=== PATIENT | female | born 1995 | race Caucasian/White ===

== ENCOUNTER 2022-07-21 09:22 | Outpatient (CLI) | payer BC, MEDICAID, SELFPAY ==
--- NOTE | ~2022-07-21 | XR_ITS ---
Right Knee Technique: AP and lateral views were obtained. Clinical History: Pain Findings: No fracture or dislocation is seen. Osseous alignment is anatomic. Joint spaces are preserv ed without degenerative or erosive change. Soft tissues are unremarkable. No joint effusion is seen. Impression: Unremarkable right knee radiographs. Reviewed, dictated and finalized at [facility]. RY MACHINE OPERATOR Impression: Unremarkable right knee radiographs.
--- NOTE | ~2022-07-21 | XR_ITS ---
XR finger 3rd LT min 2V DATE: 07/21/2022 09:57 INDICATION: Third finger proximal interphalangeal area pain after shutting finger in door TECHNIQUE: 4 views COMPARISON: None FINDINGS: No fracture, dislocation, periosteal reaction or bone destruction of the third digit. Metac arpophalangeal and interphalangeal joints are intact. IMPRESSION: Negative Reviewed, dictated and finalized at location B. ISTRY SPECIALIST IMPRESSION: Negative
[2022-07-21 10:31] LABS: Basophils Percent Auto 0.5 % (0.2-1.2); Eosinophils Absolute Auto 0.1 K/mm3 (0-0.3); Eosinophils Percent Auto 1.1 % (0-4.4); Hematocrit 40.2 % (37.0-47.0); Immature Granulocyte Absolute 0.01 K/mm3 (0.00-0.031); Immature Granulocyte Percent A 0.1 % (0-0.5); Lymphocytes Absolute Auto 2.43 K/mm3 (0.9-3.2); Lymphocytes Percent Auto 29.5 % (18.3-44.2); Mean Corpuscular HGB Conc 34.8 g/dl (32-36); Mean Corpuscular Hemoglobin 31.8 pg (26-34); Mean Corpuscular Volume 91.4 fl (80-100); Mean Platelet Volume 9.2 fl (7.4-10.4); Monocytes Absolute Auto 0.6 K/mm3 (0.1-0.6); Monocytes Percent Auto 7.4 % (2.6-8.5); Neutrophils Absolute Auto 5.1 K/mm3 (1.3-6.7); Neutrophils Percent Auto 61.4 % (45.5-73.1); Platelet Count Result 235 k/mm3 (150-375); Red Cell Distribution Width 12.1 % (11.5-14.5); White Blood Count 8.3 K/mm3 (4.5-10.0)
[2022-07-21 10:34] LABS: Appearance Urine Clear (Clear); Bacteria Urine None Seen /hpf; Bilirubin Urine Negative (Negative); Blood Urine 3+ (Negative); Color Urine Yellow (Yellow); Glucose Urine UA Negative (Negative); Ketones Urine 1+ mg/dL (Negative); Leukocyte Esterase Ur Negative LEU/UL (NEGATIVE); Nitrate Urine Negative (Negative); Non Pathogenic Casts 0-2; Protein Urine Negative (Negative); RBC Urine 51-100 /hpf (0-2); Specific Grav Ur 1.023 (1.001-1.035); Squamous Epithelial Cell Urine Few /hpf (Few); WBC Urine 0-5 /hpf (0-3); pH Urine 6.5 (5.0-9.0)
[2022-07-21 10:42] LABS: Add Urine Microscopic? YES
[2022-07-21 10:43] LABS: Alanine Aminotransferase 28 U/L (6-35); Albumin Level 4.3 g/dL (3.5-5.1); Alkaline Phosphatase 88 U/L (38-126); Anion Gap 7 mmol/L (8-16); Aspartate Amino Transferase 25 U/L (14-36); Bilirubin,Total 0.4 mg/dL (0.2-1.3); Blood Urea Nitrogen 12 mg/dL (7-17); Calcium 9.1 mg/dL (8.4-10.2); Carbon Dioxide 29 mmol/L (22-30); Chloride 100 mmol/L (98-107); Cholesterol 197 mg/dL (0-200); Estimated Glomerular Filt Rate > 60; Glucose 94 mg/dL (65-110); HDL Direct 47 mg/dL; Potassium 3.8 mmol/L (3.4-5.0); Sodium 136 mmol/L (137-145); Triglycerides 195 mg/dL (<150)
[2022-07-21 10:55] LABS: LDL Cholesterol Direct 98 mg/dL
[2022-07-21 11:19] LABS: Valproic Acid 42.8 ug/mL (50-120)
[2022-07-21 11:31] LABS: Vitamin D 25 Hydroxy 49.2 ng/mL
== END 2022-07-21 09:23 | disposition home or self-care (01) ==
PROVIDERS: PCP Nurse Practitioner Family
DX: E66.01 Morbid (severe) obesity due to excess calories (principal); Z13.220 Encounter for screening for lipoid disorders; R10.9 Unspecified abdominal pain
CPT/HCPCS: 36415; 73140; 73560; 80053; 80061; 80164; 81001; 82306; 85025; 87086

== ENCOUNTER 2024-03-29 22:36 | Day surgery (SDC) | payer BC, SELFPAY ==
--- NOTE | ~2024-03-29 | CT_ITS ---
CT of the Abdomen and Pelvis: Indication: Abdominal pain Technique: 2.5 mm axial scans were obtained through the abdomen and pelvis following intravenous adm inistration of 100 cc of Omnipaque 350. Dose reduction technique was used on this scan by utilizing a utomated exposure control and iterative reconstruction technique. The dose-length product (DLP) was 1 804.33 mGy-cm. Findings: Scans through the lung bases are unremarkable. The liver, spleen, pancreas, gallbladder, adrenals and and left kidney are within normal limits. Ther e is a 9 mm stone in the very proximal right ureter with mild right hydronephrosis and mildly delayed right nephrogram. Mild right perinephric fluid present. No evidence of aortic aneurysm. No lymphade nopathy. No bowel obstruction or bowel wall thickening. There is no evidence to suggest acute appendicitis. Images through the pelvis were performed. Urinary bladder unremarkable. No pelvic mass seen. No pelvi c ascites. Impression: 9 mm stone in the very proximal right ureter with mild right hydronephrosis, delayed right nephrogram , and mild right perinephric fluid. Reviewed, dictated and finalized at location . IN ANALYST Impression: 9 mm stone in the very proximal right ureter with mild right hydronephrosis, de layed right nephrogram, and mild right perinephric fluid.
--- NOTE | ~2024-03-29 | XR_ITS ---
EXAMINATION: XR stent kub - surgery DATE: 03/30/2024 8:50 MAIL CLERK INDICATION: RT FLANK PAIN . TECHNIQUE: 3 fluoroscopic images of the right abdomen and pelvis were obtained during right retrograd e pyelography with stent placement, performed by Jin Barth MD. I was not present during the proce dure. Fluoroscopy exposure time was 22 seconds. Air Kerma 18.57 mGy. DAP 0.49969 mGym2. COMPARISON: CT abdomen and pelvis, same date. FINDINGS/IMPRESSION: Fluoroscopic documentation of right retrograde pyelography with stent placement. Please refer to the operative note for complete procedural details . Reviewed, dictated and finalized at location K. CLERK
[2024-03-29 22:40] VITALS: BP 157/102; PULSE 90; RESP 20; TEMP 36.6; O2SAT 97
[2024-03-29 22:52] LABS: Basophils Percent Auto 0.4 % (0.2-1.2); Eosinophils Absolute Auto 0.1 K/mm3 (0-0.3); Eosinophils Percent Auto 1.1 % (0-4.4); Hematocrit 44.2 % (37.0-47.0); Hemoglobin 15.8 g/dL (12.0-15.0); Immature Granulocyte Absolute 0.02 K/mm3 (0.00-0.031); Immature Granulocyte Percent A 0.2 % (0-0.5); Lymphocytes Absolute Auto 1.89 K/mm3 (0.9-3.2); Lymphocytes Percent Auto 21.1 % (18.3-44.2); Mean Corpuscular HGB Conc 35.7 g/dl (32-36); Mean Corpuscular Hemoglobin 30.8 pg (26-34); Mean Corpuscular Volume 86.2 fl (80-100); Mean Platelet Volume 9.4 fl (7.4-10.4); Monocytes Absolute Auto 0.7 K/mm3 (0.1-0.6); Neutrophils Absolute Auto 6.2 K/mm3 (1.3-6.7); Neutrophils Percent Auto 69.2 % (45.5-73.1); Platelet Count Result 216 k/mm3 (150-375); Red Blood Count 5.13 M/mm3 (4.2-5.4); Red Cell Distribution Width 12.4 % (11.5-14.5)
[2024-03-29 23:06] LABS: Alanine Aminotransferase 45 U/L (6-35); Albumin Level 4.7 g/dL (3.5-5.1); Alkaline Phosphatase 102 U/L (38-126); Anion Gap 10 mmol/L (4-12); Aspartate Amino Transferase 29 U/L (14-36); Bilirubin,Total 0.4 mg/dL (0.2-1.3); Blood Urea Nitrogen 15 mg/dL (7-17); Calcium 9.5 mg/dL (8.4-10.2); Carbon Dioxide 27 mmol/L (22-30); Chloride 102 mmol/L (98-107); Estimated CRCL calculation 118 ml/min; Estimated Glomerular Filt Rate > 60; Glucose 121 mg/dL (65-110); Lipase 59 U/L (23-300); Potassium 3.9 mmol/L (3.4-5.0); Sodium 139 mmol/L (137-145)
[2024-03-29 23:38] LABS: Add Urine Microscopic? YES; Appearance Urine Cloudy (Clear); Bacteria Urine None Seen /hpf; Bilirubin Urine Negative (Negative); Blood Urine 3+ (Negative); Color Urine Dark Yellow (Yellow); Glucose Urine UA Negative (Negative); Ketones Urine Negative (Negative); Leukocyte Esterase Ur Negative LEU/UL (Negative); Nitrate Urine Negative (Negative); Non Pathogenic Casts 0-2; Protein Urine 1+ mg/dL (Negative); RBC Urine >100 /hpf (0-2); Specific Grav Ur 1.033 (1.001-1.035); Squamous Epithelial Cell Urine Moderate /hpf (Few); pH Urine 5.5 (5.0-9.0)
[2024-03-30] VITALS (15 sets, daily range): BP systolic 132–162; BP diastolic 73–117; PULSE 79–100; RESP 12–18; TEMP 36.2; O2SAT 95–100
[2024-03-30] MEDS: MORPHINE SULFATE (*CRX) 4 MG/ML INJ IV PUSH (02:56)
[2024-03-30] MEDS: SODIUM CHLORIDE 0.9% IV 1,000 ML 999 ML IV CONT (02:56)
[2024-03-30] MEDS: ONDANSETRON INJ 4 MG/2 ML VIAL IV PUSH (02:56)
--- NOTE | 2024-03-30 04:36 | ED_ITS ---
HPI - General Adult General Chief complaint: Abdominal Pain Stated complaint: right sided abdominal pain Time Seen by Provider: 03/30/24 02:31 History of Present Illness HPI narrative: Patient 28-year-old that presents to the emergency department with chief complaint of abdominal pain. Patient reports that started having pain in lower quadrants the abdomen reports worse in the right side of the abdomen patient states no vomiting denies diarrhea denies bloody urine blood in stool. Related Data Allergies Allergy/AdvReac Type Severity Reaction Status Date / Time No Known Allergies Allergy Unknown Verified 03/29/24 22:36 Review of Systems Review of Systems: A 10 system review of systems was completed on the patient and is negative except for what is stated in the HPI. Nursing and ancillary documentation was reviewed. [facility] Family History Family History Other Family history of thyroid disease Hypertension Social History Social History Smoking status: Never smoker Alcohol intake: never Exam Narrative: GENERAL: Well-appearing, well-nourished, and in no acute distress. HEAD: Normocephalic, atraumatic. EYES: PERRLA and EOMI. ENT: Nares clear, no rhinorrhea or epistaxis. Mucous membranes moist. NECK: Supple. CHEST: Clear to auscultation. No respiratory distress. HEART: Regular rate and rhythm. No murmur heard. Normal peripheral pulses. ABDOMEN: Soft, tender in the right lower quadrant, nondistended, normal active bowel sounds. EXTREMITIES: Normal range of motion. No edema. SKIN: Warm, dry, no rash. NEURO: No focal deficits. Alert and oriented x3. PSYCH: Normal mood and affect. Course Vital Signs Vital signs: Vital Signs Temperature 36.6 C 03/29/24 22:40 Pulse Rate 90 03/29/24 22:40 Respiratory Rate 20 03/29/24 22:40 Blood Pressure 157/102 H 03/29/24 22:40 Pulse Oximetry 97 03/29/24 22:40 Oxygen Delivery Room Air 03/29/24 22:40 Temperature 36.6 C 03/29/24 22:40 Pulse Rate 89 03/30/24 06:28 Respiratory Rate 16 03/30/24 06:28 Blood Pressure 141/99 H 03/30/24 06:28 Pulse Oximetry 100 03/30/24 06:28 Oxygen Delivery Room Air 03/29/24 22:40 Medical Decision Making MDM Narrative Medical decision making narrative: Differential diagnosis includes ureterolithiasis UTI pyelonephritis, intra- abdominal CBC and CMP showed no significant abnormality creatinine was 0.9 CT scan showed a 10 x 6 x 14 mm stone in the right UPJ The case was discussed with Dr. Barth who is coming in for another case and plans on doing a stent for the patient after his 1st case. Vital Signs Vital Signs: Vital Signs Temperature 36.6 C 03/29/24 22:40 Pulse Rate 90 03/29/24 22:40 Respiratory Rate 20 03/29/24 22:40 Blood Pressure 157/102 H 03/29/24 22:40 Pulse Oximetry 97 03/29/24 22:40 Oxygen Delivery Room Air 03/29/24 22:40 Temperature 36.6 C 03/29/24 22:40 Pulse Rate 89 03/30/24 06:28 Respiratory Rate 16 03/30/24 06:28 Blood Pressure 141/99 H 03/30/24 06:28 Pulse Oximetry 100 03/30/24 06:28 Oxygen Delivery Room Air 03/29/24 22:40 Lab Data 03/29/24 22:45 03/29/24 22:45 Labs: Lab Results 03/29/24 03/29/24 Range/Units 22:45 23:19 WBC 9.0 (4.5-10.0) K/mm3 RBC 5.13 (4.2-5.4) M/mm3 Hgb 15.8 H (12.0-15.0) g/dL Hct 44.2 (37.0-47.0) % MCV 86.2 (80-100) fl MCH 30.8 (26-34) pg MCHC 35.7 (32-36) g/dl RDW 12.4 (11.5-14.5) % Plt Count 216 (150-375) k/mm3 MPV 9.4 (7.4-10.4) fl Immature Gran % (Auto) 0.2 (0-0.5) % Neut % (Auto) 69.2 (45.5-73.1) % Lymph % (Auto) 21.1 (18.3-44.2) % [place] % (Auto) 8.0 (2.6-8.5) % Eos % (Auto) 1.1 (0-4.4) % Baso % (Auto) 0.4 (0.2-1.2) % Lymph # (Auto) 1.89 (0.9-3.2) K/mm3 [place] # (Auto) 0.7 H (0.1-0.6) K/mm3 Eos # (Auto) 0.1 (0-0.3) K/mm3 Baso # (Auto) 0.0 (0.0-0.1) K/mm3 Abs Immat Gran (auto) 0.02 (0.00-0.031) K/mm3 Absolute Neuts (auto) 6.2 (1.3-6.7) K/mm3 Absolute Nucleated RBC 0.000 (0.0-0.012) K/mm3 Nucleated RBC % 0.0 (0.0-0.2) % Sodium 139 (137-145) mmol/L Potassium 3.9 (3.4-5.0) mmol/L Chloride 102 (98-107) mmol/L Carbon Dioxide 27 (22-30) mmol/L Anion Gap 10 (4-12) mmol/L BUN 15 (7-17) mg/dL Creatinine 0.90 (0.7-1.0) mg/dL Estim Creat Clear Calc 118 ml/min Estimated GFR > 60 (59 - ) Glucose 121 H (65-110) mg/dL Calcium 9.5 (8.4-10.2) mg/dL Total Bilirubin 0.4 (0.2-1.3) mg/dL AST 29 (14-36) U/L ALT 45 H (6-35) U/L Alkaline Phosphatase 102 (38-126) U/L Total Protein 8.0 (6.3-8.2) g/dL Albumin 4.7 (3.5-5.1) g/dL Lipase 59 (23-300) U/L Urine Color Dark yellow (Yellow) Urine Appearance Cloudy H (Clear) Urine pH 5.5 (5.0-9.0) Ur Specific [place] 1.033 (1.001-1.035) Urine Protein 1+ H (Negative) mg/dL Urine Glucose (UA) Negative (Negative) mg/dL Urine Ketones Negative (Negative) mg/dL Ur Blood (Man) 3+ H (Negative) Urine Nitrate Negative (Negative) Urine Bilirubin Negative (Negative) Urine Urobilinogen 1.0 (<2.0) mg/dL Leukocyte Esterase Rfl Negative (Negative) HAZEL/UL Urine RBC >100 H (0-2) /hpf Urine WBC 6-10 H (0-3) /hpf Ur Squamous Epith Cells Moderate (Few) /hpf Urine Bacteria None seen /hpf Urine Casts 0-2 Discharge Plan Discharge Clinical Impression: Ureterolithiasis Patient Disposition: Still a Patient Condition: Stable Instructions: Antibiotic Form Follow-up/Referrals: UNKNOWN,DOCTOR [Primary Care Provider] - Jin Barth MD [Physician] - Time of Disposition: 06:39
[2024-03-30] MEDS: HYDROmorphone HCL INJ (*CRX) 1 MG/ML SYR IV PUSH (06:41)
--- NOTE | 2024-03-30 07:15 | PC.NURSE ---
report given to waqas sheldon at this time.
--- NOTE | 2024-03-30 07:28 | P.CONUR_ITS ---
Assessment and Plan Assessment and plan (1) Ureterolithiasis: Code(s): N20.1 - Calculus of ureter Status: Acute Assessment and Plan: A: Right ureteral stone, 1 cm, proximal ureter; not infected, but intervention needed for pain control P: - Proceed to OR for cystoscopy, right retrograde pyelogram, right ureteral stent placement - Outpatient follow-up for stone and stent management -- patient aware that the stent will not help the stone pass, and that the stent itself can become a health issue if not dealt with within 3 months Urology Consult Note HPI Date Seen: 03/30/24 Requesting Physician: Jin Barth MD Primary Care Provider: UNKNOWN,DOCTOR Consult Narrative Narrative: Tr Arguelles, (gentype XY, phenotype XY, who identifies as female), presents with right-sided flank pain. CT abdomen and pelvis without contrast reveals a 1 centimeter proximal right ureteral stone -- on my review of the images, there are no other stones in the urinary tract. Urinalysis shows no signs of infection. Serum white blood cell count and creatinine are normal. Has been NPO for 8 hours. Pain control not accomplished with IV pain meds in the ER, so is in need of urologic intervention. No prior stone events, lives in [place], [place], willing to get further care at [facility], best reached at [phone] -PERTINENT LABS: 03/30/2024 - WBC: Normal 03/30/2024 - Creatinine: Normal -PERTINENT IMAGIN03/30/2024 CT Abdomen/Pelvis without contrast ([facility]) - 1 cm proximal right ureteral stone; slightly delayed nephrogram on the right with hydronephrosis; no other stones see in the urinary tract 03/30/2024 UA: No signs of infection Review of Systems Review of Systems: All systems reviewed & are unremarkable except as noted in HPI and below PMFSH Family History Family History Other Family history of thyroid disease Hypertension Social History Social History Smoking status: Never smoker Alcohol intake: never Meds Home Medications and Allergies Allergies Allergy/AdvReac Type Severity Reaction Status Date / Time No Known Allergies Allergy Unknown Verified 03/29/24 22:36 Vital Signs Vital Signs - 24 hr 03/29/24 22:40 03/30/24 04:22 03/30/24 01:30 Temperature 36.6 C Pulse Rate 90 84 82 Respiratory Rate 20 17 17 Blood Pressure 157/102 H 150/87 H 162/97 H Pulse Oximetry 97 97 100 Oxygen Delivery Room Air 03/30/24 06:28 Temperature Pulse Rate 89 Respiratory Rate 16 Blood Pressure 141/99 H Pulse Oximetry 100 Oxygen Delivery Exam Narrative: No acute distress, but does appear in some discomfort Results Labs 03/29/24 22:45 03/29/24 22:45 Labs: Short CBC 03/29/24 Range/Units 22:45 WBC 9.0 (4.5-10.0) K/mm3 Hgb 15.8 H (12.0-15.0) g/dL Hct 44.2 (37.0-47.0) % Plt Count 216 (150-375) k/mm3 BMP 03/29/24 22:45 Sodium 139 Potassium 3.9 Chloride 102 Carbon Dioxide 27 BUN 15 Creatinine 0.90 Glucose 121 H Calcium 9.5 Liver Function 03/29/24 Range/Units 22:45 Total Bilirubin 0.4 (0.2-1.3) mg/dL AST 29 (14-36) U/L ALT 45 H (6-35) U/L Alkaline Phosphatase 102 (38-126) U/L Albumin 4.7 (3.5-5.1) g/dL Urine 03/29/24 Range/Units 23:19 Urine Color Dark yellow (Yellow) Urine Appearance Cloudy H (Clear) Urine pH 5.5 (5.0-9.0) Ur Specific [place] 1.033 (1.001-1.035) Urine Protein 1+ H (Negative) mg/dL Urine Glucose (UA) Negative (Negative) mg/dL
--- NOTE | 2024-03-30 08:34 | WPDHPUPDATE1 ---
History and Physical Update Update Date/Time: 03/30/24 08:34 History and Physical has been reviewed, including an updated exam of the patient. There are NO changes in the patient's condition. Risks, benefits, and alternatives have been discussed and questions answered. Patient agrees to proceed with procedure.
--- NOTE | 2024-03-30 08:35 | P.OP_ITS ---
Procedure Note - Detailed Date of Procedure 03/30/24 Pre-op Diagnosis right sided abdominal pain Post-op Diagnosis Other (Right Ureteral Stone) Procedure Performed Cystoscopy, right ureteral stent Surgeon Jin Barth MD Anesthesia General Indications Pain control issues for right ureteral stone Description of Procedure Prior to the operation an informed consent was obtained.? The patient was brought back to the operative suite and a detailed timeout was performed.? Anesthesia was induced without complication.? The patient was administered IV antibiotics in the prophylactic form.? The patient was positioned in the dorsal lithotomy position with close attention to all pressure points and was prepped and draped in sterile fashion. We began the case using a rigid cystoscope to gain access into the bladder under direct visualization per urethra. Cystoscopy was unremarkable -- no urethral strictures, age-appropriate small prostate. We turned our attention to the right ureteral orifice and cannulated it using a 5 [place] open-ended ureteral catheter and sensor wire.? We radiologically confirmed the wire to pass up into the renal pelvis -- because there was retained contrast from the CT scan, I did not need a retrograde pyelogram. With our wire in place, we placed a 4.8Fr variable length double-J ureteral stent with no string. We confirmed excellent position fluoroscopically.? The patient's bladder was emptied at the conclusion of the case and they tolerated the procedure well. PLAN: -PACU, home -Patient to call our office for treatment planning This note was created with the assistance of voice-recognition software and may contain phonetic errors.
--- NOTE | 2024-03-30 08:37 | WPDANESEPPF ---
Anes - Initial Pre Proc Eval Procedure: Operation Date: 03/30/24 08:30 Proposed Procedures p Cysto, RPG, Stone Ext, Stent Placement(Right) - Jin Barth MD Date/Time: 03/30/24 08:37 Surgeon: Jin Barth MD Pre Op Diagnosis: right sided abdominal pain Patient Data Age: 28 Gender: F Height: 1.7 m Weight: 140.9 kg Last Vital Signs Temp 36.6 C 03/29/24 22:40 Pulse 93 03/30/24 07:47 Resp 16 03/30/24 07:47 BP 132/88 03/30/24 07:47 Pulse Ox 100 03/30/24 07:47 O2 Del Method Room Air 03/29/24 22:40 Allergies Allergy/AdvReac Type Severity Reaction Status Date / Time No Known Allergies Allergy Unknown Verified 03/29/24 22:36 Laboratory Tests 03/29/24 03/29/24 22:45 23:19 WBC 9.0 K/mm3 (4.5-10.0) RBC 5.13 M/mm3 (4.2-5.4) Hgb 15.8 H g/dL (12.0-15.0) Hct 44.2 % (37.0-47.0) MCV 86.2 fl (80-100) MCH 30.8 pg (26-34) MCHC 35.7 g/dl (32-36) RDW 12.4 % (11.5-14.5) Plt Count 216 k/mm3 (150-375) MPV 9.4 fl (7.4-10.4) Immature Gran % (Auto) 0.2 % (0-0.5) Neut % (Auto) 69.2 % (45.5-73.1) Lymph % (Auto) 21.1 % (18.3-44.2) [place] % (Auto) 8.0 % (2.6-8.5) Eos % (Auto) 1.1 % (0-4.4) Baso % (Auto) 0.4 % (0.2-1.2) Lymph # (Auto) 1.89 K/mm3 (0.9-3.2) [place] # (Auto) 0.7 H K/mm3 (0.1-0.6) Eos # (Auto) 0.1 K/mm3 (0-0.3) Baso # (Auto) 0.0 K/mm3 (0.0-0.1) Abs Immat Gran (auto) 0.02 K/mm3 (0.00-0.031) Absolute Neuts (auto) 6.2 K/mm3 (1.3-6.7) Absolute Nucleated RBC 0.000 K/mm3 (0.0-0.012) Nucleated RBC % 0.0 % (0.0-0.2) Sodium 139 mmol/L (137-145) Potassium 3.9 mmol/L (3.4-5.0) Chloride 102 mmol/L (98-107) Carbon Dioxide 27 mmol/L (22-30) Anion Gap 10 mmol/L (4-12) BUN 15 mg/dL (7-17) Creatinine 0.90 mg/dL (0.7-1.0) Estim Creat Clear Calc 118 ml/min Estimated GFR > 60 (59 - ) Glucose 121 H mg/dL (65-110) Calcium 9.5 mg/dL (8.4-10.2) Total Bilirubin 0.4 mg/dL (0.2-1.3) AST 29 U/L (14-36) ALT 45 H U/L (6-35) Alkaline Phosphatase 102 U/L (38-126) Total Protein 8.0 g/dL (6.3-8.2) Albumin 4.7 g/dL (3.5-5.1) Lipase 59 U/L (23-300) Urine Color Dark yellow (Yellow) Urine Appearance Cloudy H (Clear) Urine pH 5.5 (5.0-9.0) Ur Specific [place] 1.033 (1.001-1.035) Urine Protein 1+ H mg/dL (Negative) Urine Glucose (UA) Negative mg/dL (Negative) Urine Ketones Negative mg/dL (Negative) Ur Blood (Man) 3+ H (Negative) Urine Nitrate Negative (Negative) Urine Bilirubin Negative (Negative) Urine Urobilinogen 1.0 mg/dL (<2.0) Leukocyte Esterase Rfl Negative HAZEL/UL (Negative) Urine RBC >100 H /hpf (0-2) Urine WBC 6-10 H /hpf (0-3) Ur Squamous Epith Cells Moderate /hpf (Few) Urine Bacteria None seen /hpf Urine Casts 0-2 Patient hx anesthesia problems: none Family hx anesthesia problems: none Results Review: All pre-operative results and documents have been reviewed as part of the pre-operative evaluation. [facility] Family History Family History Other Family history of thyroid disease Hypertension Social History Social History Smoking status: Never smoker Alcohol intake: never Anes - Eval Final PreProcedure Day of Procedure 03/30/24 08:37 Patient weight: morbidly obese Heart: regular rate and rhythm Lungs: clear to auscultation Airway: Mallampati scale class III Neurological: alert and oriented Last oral intake: >/= 8 hours ASA classification: III Emergent: no Anesthetic plan: proceed Anesthesia type and monitoring: general LMA and standard monitoring Results Review: All pre-operative results and documents have been reviewed as part of the pre-operative evaluation. Informed Consent: The patient's anesthetic plan and its attendant risks and benefits were discussed with the patient/family/POA. Questions were solicited and answers provided to the satisfaction of the patient/family/POA.
[2024-03-30] MEDS: ceFAZolin 2 GM/D5W 50 ML 2 GM/50 ML BAG IVPB (08:43)
[2024-03-30] MEDS: ceFAZolin SODIUM 1 GM VIAL IV PUSH (08:44)
[2024-03-30] MEDS: LIDOCAINE HCL 2% GEL UROJET 10 ML PKG MUCOUS MEM (08:56)
[2024-03-30] MEDS: KETOROLAC 15 MG/ML VIAL (*BKC) IV PUSH (09:03)
[2024-03-30] MEDS: LACTATED RINGERS 1,000 ML 30 ML IV CONT (09:07)
--- NOTE | 2024-03-30 09:58 | SUR.PHASEI ---
0956: Simple mask removed.
[2024-03-30] MEDS: hydrALAZINE HCL 20 MG/ML VIAL 5 MG IV PUSH ×2 (11:02→11:28)
--- NOTE | 2024-03-30 11:07 | SUR.PHASEII ---
Called Dr. Barth and left a message in regards to HTN. Waiting to hear back from Dr. Barth whether or not it's okay still to discharge home.
--- NOTE | 2024-03-30 11:44 | SUR.PHASEII ---
Spoke w/ Dr. Barth and he said it was fine to discharge patient home and that patient should check BP and follow-up with primary.
== END 2024-03-30 12:00 | disposition home or self-care (01) ==
LOC: ANHED 03-30 06:39 → ANHSURGERY 03-30 06:59
PROVIDERS: Emergency Provider Emergency Medicine; Visit Provider Urology
PROC: (CPT 52352; principal; 2024-03-30 08:30)
DX: N20.1 Calculus of ureter (principal); E66.01 Morbid (severe) obesity due to excess calories; Z68.42 Body mass index [BMI] 45.0-49.9, adult
CPT/HCPCS: 52332; 36415; 74177; 80053; 81001; 83690; 85025; 87086; 96361; 96374; 96375; 99285; C2617; J0360; J0690; J1100; J1171; J1885; J2003; J2270; J2405; J2704; J3010; J7030; J7120; Q9967

== ENCOUNTER 2024-04-04 01:10 | Day surgery (SDC) | payer BC, SELFPAY ==
[2024-04-01 15:39] VITALS: BMI 48.3
--- NOTE | 2024-04-01 15:51 | PC.NURSE ---
Report to the Outpatient Waiting Room, entrance under the green pavilion located off [facility], at time ___0930am____ on date __04/04/24 . Planned Procedure Time: __11:30am .? Time changes happen often and if your time is changed the preop area will call you the afternoon before. - You and your visitor will be asked to self-screen and do not enter if you have any COVID symptoms. Please call surgeon if you need to reschedule. - A mask is optional within the hospital at this time. Patients may have clear liquids (water, carbonated beverages, clear teas, apple juice) until 3 hours prior to surgery with a maximum of 20 ounces. - No food from midnight until time of surgery and no smoking. This includes no chewing gum, candy or mints. Take only the following medications with a SIP of water on the morning of surgery: ___Tylenol if needed DO NOT STOP ANY OF YOUR OTHER PRESCRIPTION MEDICATIONS PRIOR TO SURGERY EXCEPT THE FOLLOWING Medications to discontinue per physician None Date to take last dose None Please no make-up, nail z[place]an, hairspray, perfume, deodorant, or body powder the day of surgery.? No jewelry (including any body piercings) or valuables the day of surgery, leave them at home.? Please take a shower or bath the night before, or the morning of, surgery with an antibacterial soap.? Wear comfortable, loose fitting clothing.? Children are encouraged to wear pajamas. - Jewelry must be removed prior to entering the operating room.? Rings and piercings that are not removed may be cut off. - The hospital will not accept responsibility for valuables.? - Please leave all valuables, including medications, at home the day of surgery. If you are going home after surgery, a licensed deliver driver must drive you home.? - NO public transportation without another adult if you receive anesthesia. - We recommend that an adult stay with you for 24 hours following discharge. - We also recommend that you do not drive, make important decision, drink alcoholic beverages, or take any drugs that were not prescribed by your health care provider for at least 24 hours after your discharge time. Follow any additional instructions given to you from your surgeon. Telephone instructions given to ___Patient and asked if any additional questions and then verbalized understanding. Patient advised to call surgeon office or pre surgery nurse liaison [phone] if any additional questions.
[2024-04-04] VITALS (8 sets, daily range): BP systolic 120–164; BP diastolic 79–96; PULSE 88–99; RESP 12–18; TEMP 36.5; O2SAT 96–100
--- NOTE | ~2024-04-04 | XR_ITS ---
Exam: Abdomen 1 V HISTORY: ESWL COMPARISON: Reference is made to CT examination of the abdomen and pelvis dated 03/30/2024 TECHNIQUE: Supine images of the abdomen and pelvis. FINDINGS: Redemonstration of a 9.5 mm calculus projecting over the lower pole of the right kidney. Interval placement of a double-J stent, with the proximal pigtail projecting over the upper pole and the distal pigtail within the deep pelvis, projecting over the bladder. A very now Bowel gas pattern is non-obstructive. There is no free air or deep sulci. No pathologic calcifications are seen. Lung bases are unremarkable. Bones and soft tissues are unremarkable. IMPRESSION: Double-J stent in good radiographic position. Redemonstration of a calculus projecting over the lower pole of the right kidney. Reviewed, dictated and finalized at location A. NEERING LECTURER IMPRESSION: Double-J stent in good radiographic position. Redemonstration of a calculus projecting over the lower pole of the right cecily magana
--- NOTE | 2024-04-04 08:23 | WPDHPUPDATE1 ---
History and Physical Update Update Date/Time: 04/04/24 08:23 History and Physical has been reviewed, including an updated exam of the patient. There are NO changes in the patient's condition. Risks, benefits, and alternatives have been discussed and questions answered. Patient agrees to proceed with procedure. Proceed wtih eswl of right renal calculus
[2024-04-04] MEDS: LACTATED RINGERS 1,000 ML 30 ML IV CONT (08:30)
[2024-04-04 08:46] LABS: Partial Thromboplastin Time 25.9 Seconds (22.3-36.8); Prothrombin Time 13.4 Seconds (11.1-14.7)
--- NOTE | 2024-04-04 08:50 | P.PNAN_ITS ---
Anes - Initial Pre Proc Eval Procedure: Operation Date: 04/04/24 10:00 Proposed Procedures p Right Extracorporeal Shock Wave Lithotripsy - Ankush Keita MD s Cystoscopy with Right Stent Removal / Replacement - Ankush Keita MD Date/Time: 04/04/24 08:50 Surgeon: Ankush Keita MD Pre Op Diagnosis: Right Ureteral Kidney Stone Patient Data Age: 28 Gender: M Height: 1.7 m Weight: 132.2 kg Last Vital Signs Temp 97.7 F 04/04/24 08:30 Pulse 91 04/04/24 08:30 Resp 14 04/04/24 08:30 BP 164/96 H 04/04/24 08:30 Pulse Ox 97 04/04/24 08:30 O2 Del Method Room Air 04/04/24 08:30 Allergies Allergy/AdvReac Type Severity Reaction Status Date / Time No Known Allergies Allergy Unknown Verified 04/04/24 08:46 Home Medications Medication Instructions Recorded Confirmed Type No Home Medications 04/01/24 04/01/24 History Laboratory Tests 04/04/24 08:32 PT 13.4 Seconds (11.1-14.7) INR 1.0 APTT 25.9 Seconds (22.3-36.8) Patient hx anesthesia problems: none Family hx anesthesia problems: none Results Review: All pre-operative results and documents have been reviewed as part of the pre- operative evaluation. [facility] Family History Family History Other Family history of thyroid disease Hypertension Social History Social History Smoking status: Never smoker Alcohol intake: never Substance use: never Living arrangements: with family Spiritual care concerns: No Anes - Eval Final PreProcedure Day of Procedure 04/04/24 08:50 Patient weight: morbidly obese Heart: regular rate and rhythm Lungs: clear to auscultation Airway: Mallampati scale class II Neurological: alert and oriented Last oral intake: >/= 8 hours ASA classification: III Emergent: no Anesthetic plan: proceed Anesthesia type and monitoring: general LMA and standard monitoring Results Review: All pre-operative results and documents have been reviewed as part of the pre- operative evaluation. Informed Consent: The patient's anesthetic plan and its attendant risks and benefits were discussed with the patient/family/POA. Questions were solicited and answers provided to the satisfaction of the patient/family/POA.
[2024-04-04] MEDS: ceFAZolin 3 GM/D5W 100 ML 100 ML IVPB (08:56)
--- NOTE | 2024-04-04 09:34 | W.PM.PROC2 ---
Procedure Note - Detailed Date of Procedure 04/04/24 Pre-op Diagnosis Right Kidney Stone Post-op Diagnosis Same Procedure Performed Lithotripsy of right renal calculus Surgeon Ankush Keita MD Anesthesia General Description of Procedure Patient is taken the operative suite correctly identified. Once anesthesia was obtained the stone was localized in both planes. Two thousand five hundred shocks were given the stone. There appeared to be good fragmentation. Patient tolerated procedure well without any complications and was taken recovery stable condition. Patient will follow-up in 7-10 days with KUB. This completes dictation. Please send a copy of op note to my office Estimated Blood Loss 0 Drains Yes (Has stent) Packing No Pathology None sent Complications No immediate complications Condition Stable Disposition PACU
== END 2024-04-04 11:35 | disposition home or self-care (01) ==
PROVIDERS: Visit Provider Urology
PROC: (CPT 50590; principal; 2024-04-04 10:00)
DX: N20.0 Calculus of kidney (principal); E66.01 Morbid (severe) obesity due to excess calories; Z68.42 Body mass index [BMI] 45.0-49.9, adult
CPT/HCPCS: 50590; 36415; 74018; 85610; 85730; J0690; J1100; J2003; J2250; J2405; J2704; J3010; J7030; J7120

== ENCOUNTER 2024-04-24 14:14 | Outpatient (CLI) | payer BC, SELFPAY ==
--- NOTE | ~2024-04-24 | XR_ITS ---
EXAMINATION: XR abdomen/kub 1V DATE: 04/24/2024 14:44 INDICATION: Calcium kidney stone. TECHNIQUE: A supine view of the abdomen on 2 radiographs was obtained. COMPARISON: CT abdomen and pelvis 03/30/2024 FINDINGS: There are no dilated loops of bowel. There is a moderate volume of stool in the colon. Ther e is a right internal ureteral stent in expected position. IMPRESSION: 1. Right internal ureteral stent in expected position. No visible kidney stone. Reviewed, dictated and finalized at location A. Y POSITION OFFICER
--- OUTSIDE RECORDS SUMMARY | 2024-04-24 14:31 | XMS_ITS ---
Author [facility] Address [address] [place] [address] Care Team Providers Care Electron Beam Welder Name Role Phone Dr. Rubén Escamilla Primary Care Provider PreSumit orourke [phone] REASON FOR VISIT Follow Up Social History Sex Assigned At : Social History Observation Description Sex Assigned At Male Encounters Encounter Location Date Provider Diagnosis [address] [address] 11/10/2022 Rubén Escamilla Plan Of Treatment No Information Progress Notes * Tr ARGUELLESDOB:1995 ([age] yo M)Acc No.[id number]:11/10/2022 Progress Notes Patient:?Tr ARGUELLES Provider:Chino Escamilla DO :1995???Age:26 Y???Sex:Male(T) Date:11/10/2022 Address:[address] [place] [address], [address] [facility] Subjective: * Chief Complaints: * ???1. Follow Up. * Medical History:? * Implants:? Objective: * Vitals:? Assessment: Plan: * Treatment: * Billing Information: * Visit Code:? * Procedure Codes:? Care Plan Details* * Electronic signature of Dr. Rubén Escamilla DO on 04/24/2024 at 02:31 PM SHEET HEATER HELPER Sign off status: Pending * Provider:?Rubén Escamilla DO Date:? Generated for Jamir peterson/Juan Diego/Angelaitting on:?04/24/2024 02:31 PM SHEET HEATER HELPER
--- OUTSIDE RECORDS SUMMARY | 2024-04-24 14:31 | XMS_ITS ---
Author Organization [facility] Address [address] [place] [address] Care Team Providers Care Programmer Analyst Name Role Phone Dr. Rubén Escamilla Primary Care Provider Sumit Richard [phone] Social History Sex Assigned At : Social History Observation Description Sex Assigned At Male Encounters Encounter Location Date Provider Diagnosis [address] [address] 11/17/2022 Rubén Escamilla Plan Of Treatment No Information Progress Notes * Tr ARGUELLESDOB:1995 ([age] yo M)Acc No.[id number]:11/17/2022 Progress Notes Patient:?Tr ARGUELLES Provider:?Rubén Escamilla DO :1995???Age:26 Y???Sex:Male(T) Date:11/17/2022 Address:[address] [place] [address], [address] [facility] Subjective: * Chief Complaints: * ??? * Medical History:? * Implants:? Objective: * Vitals:? Assessment: Plan: * Treatment: * Procedure Codes:?D9987 No Ca ll No Show * Billing Information: * Visit Code:? * Procedure Codes:? D9987 No Call No Show. Care Plan Details* * Electronic signature of Dr. Rubén Escamilla DO on 04/24/2024 at 02:31 PM OPTICAL INSTRUMENT SPECIALIST Sign off status: Pending * Provider:?Rubén Escamilla DO Date:? Generated for Jamir peterson/Juan Diego/Angelaitting on:?04/24/2024 02:31 PM OPTICAL INSTRUMENT SPECIALIST
--- OUTSIDE RECORDS SUMMARY | 2024-04-24 14:32 | XMS_ITS | Data Portability ---
Author Organization [facility] Address [address] [place] [address] Assessment No assessment recorded. Plan of Treatment Reminders Order Date Submit Date Provider Last Modified By Organization Details Last Modified Time Details Appointments None recorded. Lab SARS CoV 2 RNA (COVID-19), QL, cash management specialist-PCR, respiratory specimen - elizabeth mendez @ [facility] [place] 2019 020 [facility] (Lab), [address] [place], [address], 0 18:43:03 Referral behavioral health referral 2018 019 [email or web address] Not available 9 16:35:56 sleep medicine referral - Please call patient to schedule appt. Thank you 2018 019 PARKER Cho MD, [address] [facility] [address], [place], [address], 9 20:28:06 Procedures None recorded. Surgeries None recorded. Imaging None recorded. Medication Orders None recorded. Patient TargetsNo targets recorded. Patient Instructions Encounter Date Encounter Id Patient Instructions Last Modified By Organization Details Last Modified Time 07/05/2018 [id number] snoring: care instructions [facility] Not available 07/05/2018 15:27:26 01/16/2020 [id number] Reviewed the following recommendations: -Stay home and separate from others as much as possible. -Monitor your symptoms and seek medical attention for trouble breathing, persistent chest pain, confusion, or bluish lips or face. -Wear a mask if you must be around other people. -Wash your hands often for 20 seconds with soap and water and clean high-touch surfaces daily -You may discontinue home isolation if your symptoms are improving, it has been 10 days since symptoms started, and you have been fever free for at least 3 days. [email or web address] Not available 01/16/2020 12:03:48 Reason for Referral Sleep Medicine Referral for Snoring symptoms Please call patient to schedule appt. Thank you Referring Physician: Danisha Rogers, Internal Medicine, Encounter Date: 07/05/2018 Behavioral Health Referral f or Mixed anxiety and depressive disorder Referring Physician: Danisha Rogers, Internal Medicine, Encounter Date: 07/05/2018 Results Created Date Observation Date Name Description Value Unit Range Abnormal Flag Note LastModifiedBy Organization Detail LastModifiedTime 01/16/2001/16/2020 SARS CoV 2 RNA (COVI D-19) , QL, cash management specialist-P CR, respi rator y speci men sars - cov - 2 PCR NEGATI VE mL Not Available [facility] (Lab) [address] [place], [address], 01/17/2020 18:43:03 01/16/20 20 01/16/2020 SARS CoV 2 RNA (COVI D-19) , QL, cash management specialist-P CR, respi rator y speci men covidcom1 COMME NTS: This assay is desig meaghan to detec t the RdRp and N genes of SARS- CoV-2 using nucle ic acid ampli ficat ion. A negat jorge resul t does not precl ude the possi bilit y of 2019- nCoV infec tion since the adequ acy of sampl e colle ction and/o r low viral burde n may resul t in the prese nce of viral nucle ic acids level s below the pawan tical sensi tivit y of this test metho d. Not Available [facility] (Lab) [address] [place], [address], 01/17/2020 18:43:03 01/16/20 20 01/16/2020 SARS CoV 2 RNA (COVI D-19) , QL, cash management specialist-P CR, respi rator y speci men covidcom2 Posit jorge resul ts are indic ative of the prese nce of SARS- CoV-2 RNA and do not rule out bacte rial infec tion or co-in fecti on with other virus es. Not Available [facility] (Lab) [address] [place], [address], 01/17/2020 18:43:03 01/16/20 20 01/16/2020 SARS CoV 2 RNA (COVI D-19) , QL, cash management specialist-P CR, respi rator y speci men covidcom3 Test resul ts shoul d be used along with other clini aida obser vatio ns, patie nt histo ry, epide miolo gical infor matio n and labor atory data in [facility] g the diagn osis. Not Available [facility] (Lab) [address] [place], [address], 01/17/2020 18:43:03 01/16/20 20 01/16/2020 SARS CoV 2 RNA (COVI D-19) , QL, cash management specialist-P CR, respi rator y speci men covidcom4 This test has recei stephanie FDA Emerg ency Use Autho rizat ion and has been verif ied by [facility] . This test is only autho rized for the durat ion of the decla ratio n and the circu mstan neno that exist to justi fy the autho rizat ion of the emerg ency use of in vitro diagn ostic tests for the detec tion of SARS- CoV-2 virus and/o r diagn osis of COVID -19 infec tion under secti on 564 (b) (1) of the Act. 11 U.S.C . 360bb b-3 (b) (1), unles s the autho rizat ion is termi nated or revok ed soone r. Not Available [facility] (Lab) [address] [place], [address], 01/17/2020 18:43:03 01/16/20 20 01/16/2020 SARS CoV 2 RNA (COVI D-19) , QL, cash management specialist-P CR, respi rator y speci men covidcom5 [facility] lucien garcia is certi fied under CLIA- 88 as quali fied to perfo rm high compl exity testi ng. This testi ng was perfo rmed in the [facility] [place] [address] (CLIA Licen se #[id number] 96321 5, CAP #[id number], AU-ID #[id number]). Not Available [facility] (Lab) [address] [place], [address], 01/17/2020 18:43:03 01/16/20 20 01/16/2020 SARS CoV 2 RNA (COVI D-19) , QL, cash management specialist-P CR, respi rator y speci men covidcom6 Facts heet for healt hcare provi ders: https ://[employer] .gov/ media /1362 56/do wnloa d Facts heet for patie nts: https ://[employer] .gov/ media /1362 57/do wnloa d Not Available [facility] (Lab) [address] [place], [address], 01/17/2020 18:43:03 Result Notes None recorded. Problems No Known Problems Medical Equipment None Reported. Allergies No known drug allergies Medications Name Sig Start Date Stop Date Status Note LastModified by Organization Details LastModified Time bupropion HCl SR 150 mg tablet,12 hr sustained-relea se Take 1 tablet twice a day by oral route. active Not Available Not Available No t Available estradiol 2 mg tablet Take 3 tablets every day by oral route. active Not Available Not Available No t Available spironolactone active Not Available No t Available Not Available Vitals Date Recorded Body height Body mass index (BMI) Body weight Body temperature Oxygen saturation Oxygen saturation in Arterial blood by Pulse oximetry Heart rate Systolic blood pressure Diastolic blood pressure Provider Name and Address Organization Details Last Updated DateTime 9 168.91 cm 39.1 kg/m2 021952. 15 g 98.2 [degF] 98 % 98 % 88 /min 106 mm[Hg] 70 mm[Hg] Nima Landaverde [place] [facility] 9 15:16:07 Social History Question Answer Notes LastModified by Organizat ion Details LastModified Time Tobacco Smoking Status Never Smoker Nima Landaverde [place] null, [place] - [facility] 07/05/2018 15:11:26 What Is Your Level Of Alcohol Consumption? Occasional [email or web address] Information not available 07/05/2018 What Was The Date Of Your Most Recent Tobacco Screening? 07/05/2018 Information n ot available 12/05/2018 Sex: Unknown Functional Status None recorded. Mental Status None recorded. Family History Relationship Description Onset Age of this Age Resolved Age Notes LastModified by Organization Details LastModified Time Father Alcohol abuse [email or web address] Not available 07/05 15:10:47 Father Diabetes mellitus [email or web address] Not available 07/05 15:11:17 Medical History Condition Response Anxiety Disorder Y Kidney or Bladder Problems Y Depression Y Past Encounters Encounter ID Performer Location Encounter Start Date Encounter Closed Date Diagnosis/Indication Diagnosis SNOMED-CT Code Diagnosis ICD10 Code [id number] MD Morgan Ríos (Adult Med) [address] [place] [address] 07/05/2018 14:27:07 07/08/2018 09:52:46 Snoring symptoms 341615857 R06.83 Hormone re placement therapy 860679867 Z79.890 Mixed anxi ety and depressive disorder 371731785 F41.8 [id number] [facility] [address] [place] [address] 01/16/2020 11:50:36 01/20/2020 10:43:08 Exposure to SARS-CoV-2 230051165 Z20.828 Health Concerns Section Related Observation LastModified by Organization Detai ls LastModified Time None Recorded Concern Status LastModified by Organization Details LastModified Time None Recorded Advance Directives Directive None Recorded Payers Encounter Date Sequence Insurance Name Policy Number Policy Donald Covered Member ID Donald Member ID Guarantor Name 07/05/2018 1 [facility] [id number] Ricky Arguelles [id number] Tr Arguelles 01/16/2020 1 [facility] - DOS PRIOR TO 2020 (MEDICAID REPLACEMENT - HMO) Tr Robert Blane [id number] Tr Arguelles Notes Date Note Type Note Provider Name and Address Organization Details Recorded Time 07/05/2018 text/html First time, depression, NKDA, in the process of gender transform, from nurse practitioner for hormone replacement treatment. Danisha Rogers MD Attn: Accounting,[address] [place], [address], [facility] 07/05/2018 15:27:29 01/16/2020 text/html COVID ScreeningReported bypatient.Onset/Durati on of fever:no fever Associated Symptoms:no cough; no shortness of breathCOVID-19 Symptoms September 2019Reported bypatient.COVID-19 Signs and Symptomscough resolved; fever resolved; shortness of breath resolved; chills resolved; repeated shaking with chills resolved; muscle pain resolved; headache resolved; sore throat resolved; loss of taste or smell resolved; vomiting or diarrhea resolved; fatigue resolved; anorexia resolved Contacts and Exposureclose contact with a confirmed or suspected case of COVID-19 (6 days ago) Associated Symptoms:no sputum production; no wheezing; no runny nose; no vomiting; no diarrhea; no body aches; no nausea; no change in mental status; no hypotension; no tachycardia pt denies symptoms JESICA RICARDO NP Attn: Accounting,[address] [facility], [place], [address], [facility] 01/16/2020 12:05:46
--- OUTSIDE RECORDS SUMMARY | 2024-04-24 14:32 | XMS_ITS | Patient Health Record ---
Author Organization [facility] Address [address] [place] [address] Care Team Providers Care Leather Carver Name Role Phone Dr. Rubén Escamilla Primary Care Provider [phone] PreSumit orourke Unavailable [phone] Allergies No Known Allergies Reason For Referral No Information Medications Medication SIG (Take, Route, Frequency, Duration) Notes Start Date End Date Status Progesterone 200 MG 1 capsule Orally Onc e a day for 90 days 04/27/2022 Active Estradiol 2 mg TAKE 1 TABLET BY BIA TH TWICE A DAY for 30 Active busPIRone HCl 7.5 MG 1 tablet Orally Twi ce a day Active buPROPion HCl ER (SR) 150 MG 1 tablet in the morning Orally Once a day Active Divalproex Sodium 125 MG 1 tablet Orally Once a day Active Spironolactone 100 MG 1 tablet Orally On ce a day for 90 days Active Immunizations Vaccine Route Administration Date Status Comme nts Flulaval IM Intramuscular 03/31/2022 Administered HPV VIRUS VACCINE 9 (Gardasil 9) IM Intramuscular 03/31/2022 Administered [employer] Covid-19 Bivalent Booster IM Intramuscular 03/31/2022 Administered Tdap (Boostrix, Adacel) IM Intramuscular 03/31/2022 Admini stered zzInfluenza, quadrivalent, injectable, preservative free (All) IM Intramuscular 03/12/2017 Administered Social History Tobacco Use: Social History Observation Description Date Details (start date - stop date) Never Smoker NA - NA Sex Assigned At : Social History Observation Description Sex Assigned At Male Tobacco Use/Smoking Question Answer Notes Smoking Status: nonsmoker Alcohol Screen (Audit-C) Question Answer Notes Did you have a drink contain ing alcohol in the past year? Yes How often did you have 6 or more drinks on one occasion in the past year? Less than monthly (1 point) How many drinks did you have on a typical day when you were drinking in the past year? 1 or 2 drinks (0 point) How often did you have a dri nk containing alcohol in the past year? Monthly or less (1 point) Sexual History Question Answer Notes Had sex in the past 12 months (vaginal, oral, or anal)? No Have you ever had a Sexually transmitted disease ? No Tobacco use other than smoking: Question Answer Notes Are you an other tobacco user? No Problems Problem Type SNOMED Code ICD Code Onset Dates Problem Status W/U Status Risk Notes Problem 59481636 Anxiety (F41.9) Active confirmed Problem 69310879 Bipolar affective disorder, remission status unspecified (F31.9) Active confirmed Problem Generalized anxiety disorder (75272604) JAIME (generalized anxiety disorder) (F41.1) Active confirmed Problem 837868418 Therapeutic drug monitoring (Z51.81) Active confirmed Problem Gender dysphoria in adolescence and adulthood (971288693264592 08) Gender dysphoria in adult (F64.0) Active confirmed Plan Of Treatment No Information Insurance Providers Payer Name Payer Address Payer Phone Subscriber Number Group Number Insured Name Patient Relationship to Insured Coverage Start Date Coverage End Date [facility] [address] [place] [address] [id number] Tr Arguelles Self - patient is the insured 2 Medical (General) History Medical History History ICD Code Gender dysphoria in adult Colonoscopy: No DEXA (Bone Density) Scan: No Mammogram: No Pap: Never had AIDS/HIV: No alcohol abuse: No acid reflux: No allergies, food: No allergies, seasonal: No anemia: No arthritis: No asthma: No attention deficit disorder: Yes anxiety: Yes bipolar disorder: Yes bladder infections, chronic: No : No chronic diarrhea: No cough, chronic: No dementia: No depression: Yes deep vein thrombosis: No diabetes mellitus: No drug abuse: No eating disorder: No gout: No insomnia: No inflammatory bowel disease: No myocardial infarction: No neuropathy: No panic attacks: No osteoporosis: No pulmonary embolism: No rheumatoid arthritis: No seizures: No sleep apnea: No stroke: No white coat hypertension: No Other not mentioned: No Surgical History Surgery Date(Month/Year) pilonidal cyst excision Hospitalization History Reason Date(Month/Year) [facility], mental health admission Pilonidal cyst excision
== END 2024-04-24 14:15 | disposition home or self-care (01) ==
LOC: ANHIMG 14:30
PROVIDERS: Visit Provider Urology
DX: N20.0 Calculus of kidney (principal); Z96.0 Presence of urogenital implants
CPT/HCPCS: 74018